=== PATIENT | male | born 1985 | race Caucasian/White ===

== ENCOUNTER 2016-09-29 19:13 | Emergency (ER) | payer MEDICAID ==
[~2016-09-29] VITALS: Ht 193 cm; Wt 102.1 kg
[2016-09-29 19:19] VITALS: BP 128/84
== END 2016-09-29 21:14 | disposition left against medical advice (07) ==
LOC: ER 19:13
DX: M25.561 Pain in right knee (principal); Z53.21 Procedure and treatment not carried out due to patient leaving prior to being seen by health care provider; V43.52XA Car driver injured in collision with other type car in traffic accident, initial encounter; Y93.89 Activity, other specified; Y92.89 Other specified places as the place of occurrence of the external cause; Y99.8 Other external cause status